=== PATIENT | female | born 2005 | race Hispanic/Latino ===

== ENCOUNTER 2024-07-22 08:02 | Observation (INO) | payer OTHER, SELFPAY ==
[2024-07-22] VITALS (18 sets, daily range): BP systolic 98–141; BP diastolic 52–99; PULSE 56–83; RESP 12–19; TEMP 36.2–36.8; O2SAT 97–99; BMI 24.1
--- NOTE | 2024-07-22 | PATH_ITS ---
[facility] Accession Number: [id number] No. of containers..01 Tissue . 01 Material submitted: . gallbladder - GALLBLADDER . 01 Diagnosis: GALLBLADDER: 1. Acute and chronic cholecystitis with cholelithiasis. No dysplasia or malignancy identified. 2. Benign reactive lymph node. [facility] 07/26/20241712 Local . 01 Electronically signed: . Anup Garcia MD, Pathologist NPI- [id number] . 01 Gross description: . Received in formalin with two identifiers and gallbladder, is an intact gallbladder 10.7 x 3.5 x 3.5 cm with a gibson, slightly roughened external surface. The cystic duct margin is inked blue and a pericystic lymph node candidate is identified 1.0 cm in greatest dimension. The lumen contains a yellow bosselated calculus 2.0 cm in greatest dimension not grossly obstructing the cystic duct and admixed with dark green mucoid and partially solidified bile. The mucosa is green to brown and velvety with yellow areas of discoloration. No polyps or lesions are identified. The kaye average 0.4 cm thick. Client Solutions Manager sections to include the cystic duct margin, one-half of the bisected lymph node candidate, and full thickness sections are submitted in cassette A1. ([id number]) /DIANA 07/26/20241711 Local . 01 Pathologist provided ICD-10: K80.12, K81.2 . 01 CPT . 977020 Specimen Comment: A courtesy copy of this report has been sent to [facility] Performed at: [address] [facility], [place], [place] [id number] MD Anup Garcia MD Phone: [phone]
--- NOTE | 2024-07-22 08:44 | DI.US.S_ITS ---
PROCEDURE: US ABDOMEN LIMITED INDICATIONS: RUQ PAIN TECHNIQUE: Real-time scanning was performed of the abdominal and retroperitoneal organs, with image documentation. COMPARISON: None. FINDINGS: Liver: Liver is normal in size and homogeneous in echotexture. Gallbladder: The gallbladder contains a small amount of dependent sludge and a 1.8 cm stone appears fixed within the gallbladder neck. The gallbladder wall is abnormally thickened at 8.2 mm. There is a small amount of pericholecystic free fluid and focal tenderness during sonographic palpation of the gallbladder. Biliary ducts: Intrahepatic bile ducts are non-dilated. Extrahepatic bile duct caliber measures 5.9 mm. Normal is 6-7 mm or less in diameter, or 10 mm or less post-cholecystectomy. Pancreas: Visualized portions of the pancreas are sonographically normal. Miscellaneous: No free abdominal fluid. IMPRESSION: Acute cholecystitis, associated with a 1.8 cm stone lodged within the gallbladder neck with associated pain, adjacent free fluid, and gallbladder wall thickening. Dictated by: Shimon Garrett M.D. on 07/22/2024 at 9:21 Approved by: Shimon Garrett M.D. on 07/22/2024 at 9:23
--- NOTE | 2024-07-22 08:47 | ED.ABDPAIN ---
HPI - Abdominal Pain General Chief Complaint: Abdominal Pain Stated Complaint: Stomach pain Time Seen by Provider: 07/22/24 08:35 Source: patient Mode of arrival: Family Vehicle History of Present Illness HPI narrative: This is a 19-year-old female who arrives by private vehicle complaining of right upper quadrant abdominal pain. This is day 3 of her right upper quadrant abdominal pain. He is accompanied by nausea and she believes last night she had a fever chills and sweats. She has a prior surgical history of appendectomy is otherwise healthy. She was seen [facility] days ago [facility] for these same symptoms, records of this visit were obtained, physician note with incomplete in the faxed history, she had a normal white count, normal bilirubin and alkaline phosphatase, lipase was normal urine test was negative, ultrasound impression was ?distended gallbladder filled with sludge and borderline wall thickening. No other findings to suggest acute cholecystitis.? Related Data Allergies Allergy/AdvReac Type Severity Reaction Status Date / Time No Known Drug Allergies Allergy Verified 07/22/24 08:55 Patient History Social History Smoking Status: Never smoker Smoking Status: Never smoker Exam Initial Vital Signs Initial Vital Signs: Vital Signs Pulse Rate 83 07/22/24 08:12 Pulse Oximetry 98 07/22/24 08:12 Const General: cooperative and No acute distress HENMT Head: normocephalic and atraumatic Neck Neck: normal visual inspection Chest Chest: normal inspection of the chest Resp Effort & Inspection: normal respiratory effort Auscultation: clear to auscultation bilaterally Cardio Rate: regular rate Rhythm: regular rhythm Heart Sounds: no murmurs GI Auscultation: normal bowel sounds and other (Right upper quadrant is tender with guarding) Neuro General: patient alert and patient oriented x3 Course Orders Ordered: ED Orders 07/22/24 08:20 CBC Auto Diff [Complete Blood Count AUTO DIFF] Stat CMP [Comprehensive Metabolic Panel] Stat Lipase Stat 07/22/24 08:44 US abdomen limited Stat 07/22/24 09:31 MR abdomen wo con Stat 07/22/24 09:32 Consult to General Surgery Stat 07/22/24 10:27 Urine Microscopic Stat Discontinued Medications Hydromorphone HCl (Hydromorphone 0.5 Mg Inj) 0.5 mg IV NOW ONE Stop: 07/22/24 08:45 Last Admin: 07/22/24 09:18 Dose: 0.5 mg Documented By: LAUREN Ondansetron HCl (Ondansetron 4 Mg/2 Ml Inj) 4 mg IV NOW ONE Stop: 07/22/24 08:45 Last Admin: 07/22/24 09:18 Dose: 4 mg Documented By: LAUREN Consultations Consultation #1: Case discussed with and patient was seen by General surgery, Dr. Page. We would like MRCP given the elevated bilirubin but anticipates cholecystectomy later this afternoon Vital Signs Vital signs: Vital Signs - 8 hr 07/22/24 08:12 07/22/24 08:16 07/22/24 08:30 Temperature 98.3 F Pulse Rate 83 78 79 Respiratory Rate 18 Blood Pressure 121/75 Pulse Oximetry 98 98 98 Oxygen Delivery Method Room Air 07/22/24 08:34 07/22/24 08:34 07/22/24 09:00 Temperature Pulse Rate 76 69 Respiratory Rate 16 Blood Pressure 111/75 Pulse Oximetry 98 98 Oxygen Delivery Method Room Air 07/22/24 09:00 07/22/24 09:30 07/22/24 09:30 Temperature Pulse Rate 75 Respiratory Rate Blood Pressure 107/74 108/77 Pulse Oximetry 98 Oxygen Delivery Method 07/22/24 10:00 07/22/24 10:00 07/22/24 11:41 Temperature Pulse Rate 72 Respiratory Rate 18 Blood Pressure 100/58 L 99/66 Pulse Oximetry 98 Oxygen Delivery Method Room Air 07/22/24 11:41 07/22/24 11:42 07/22/24 12:00 Temperature Pulse Rate 72 70 70 Respiratory Rate 14 Blood Pressure 99/66 Pulse Oximetry 99 99 98 Oxygen Delivery Method Room Air MDM - Abdominal Pain Lab Data Lab results narrative: Patient is not , has an elevated bilirubin and AST ALT mild leukocytosis 07/22/24 08:20 07/22/24 08:20 Labs: Lab Results 07/22/24 07/22/24 Range/Units 08:20 10:27 WBC 12.3 H (4.5-11.0) X10^3/uL RBC 5.08 (4.0-5.2) X10^6/uL Hgb 13.6 (12.0-16.0) g/dL Hct 40.7 (36-46) % MCV 80.2 (80-100) fL MCH 26.8 (26-34) PG MCHC 33.5 (30-36) % RDW 14.4 (11.6-14.8) % Plt Count 244 (150-400) X10^3/uL Neut % (Auto) 77.5 H (50-75) % Lymph % (Auto) 12.4 L (25-40) % [place] % (Auto) 7.6 (3-14) % Eos % (Auto) 2.2 (2-4) % Baso % (Auto) 0.3 (0-2) % Neut # (Auto) 9500 H (5913-9315) /uL Lymph # (Auto) 1500 (8828-0175) /uL [place] # (Auto) 900 (0-900) /uL Eos # (Auto) 300 (0-450) /uL Baso # (Auto) 0 (0-100) /uL Sodium 135 L (137-145) mmol/L Potassium 3.8 (3.4-5.1) mmol/L Chloride 100 (98-107) mmol/L Carbon Dioxide 23 (22-32) mmol/L BUN 7 (7-17) mg/dL Creatinine 0.47 L (0.52-1.04) mg/dL Estimated GFR > 60 (>60) mL/min BUN/Creatinine Ratio 14.9 (6-22) Glucose 109 H (70-100) mg/dL Calcium 8.9 (8.4-10.2) mg/dL Total Bilirubin 1.4 H (0.2-1.3) mg/dL AST 134 H (14-36) IU/L ALT 147 H (<35) IU/L Alkaline Phosphatase 85 (38-126) U/L Total Protein 8.1 (6.3-8.2) g/dL Albumin 4.6 (3.5-5.0) g/dL Globulin 3.5 (1.7-4.1) g/dL Albumin/Globulin Ratio 1.3 (1.0-2.8) Lipase 36 (23-300) U/L Urine RBC 0-1/hpf (0-5/HPF) Urine WBC 0-1/hpf (0-5/HPF) Ur Squamous Epith Cells 1-5 /hpf (0-5/HPF) Urine Bacteria Occasional (0-1) (None) Ur Culture Indicated? Cult not indicated Vol Urine Centrifuged 10ml (spun) Point of care testing: Point of Care Testing Test Results Negative Urine Dip Bedside Urine Glucose Negative Bedside Urine Bilirubin - Negative Bedside Urine Ketone ++ 40 Urine Specific [place] 1.010 Bedside Urine Occult Blood ++ Bedside Urine pH 6.0 Bedside Urine Protein - Negative Bedside Urine Urobilinogen - Negative Bedside Urine Nitrite - Negative Bedside Urine Leukocytes - Negative Esterase Imaging Data US - abdomen: Radiologist's Impression: Acute cholecystitis with impacted gallstone MRCP: Radiologist's Impression: Acute cholecystitis with impacted gallstone, no pancreatitis no choledocholithiasis MDM Narrative Medical decision making narrative: 19-year-old female presenting with right upper quadrant pain and tenderness. She appears nontoxic has a mild leukocytosis and ultrasound showing acute cholecystitis. Lipase is normal, MRCP does not show common bile duct stone or pancreatitis. General surgery was consulted in the inner planning cholecystectomy Discharge Plan Departure Patient Disposition: Admitted to Surgery Clinical Impression: Acute calculous cholecystitis Admit Date/Time: 07/22/24 13:37 Admit Provider: Chris Page
[2024-07-22 08:53] LABS: Add Manual Diff / Slide Review NO; Basophils Absolute Auto 0 /uL (0-100); Basophils Percent Auto 0.3 % (0-2); Eosinophils Absolute Auto 300 /uL (0-450); Eosinophils Percent Auto 2.2 % (2-4); Hematocrit 40.7 % (36-46); Hemoglobin 13.6 g/dL (12.0-16.0); Lymphocytes Absolute Auto 1500 /uL (1100-4500); Lymphocytes Percent Auto 12.4 % (25-40); Mean Corpuscular HGB Conc 33.5 % (30-36); Mean Corpuscular Hemoglobin 26.8 PG (26-34); Mean Corpuscular Volume 80.2 fL (80-100); Monocytes Absolute Auto 900 /uL (0-900); Monocytes Percent Auto 7.6 % (3-14); Neutrophils Absolute Auto 9500 /uL (1500-7000); Neutrophils Percent Auto 77.5 % (50-75); Platelet Count 244 X10^3/uL (150-400); Red Blood Cell Count 5.08 X10^6/uL (4.0-5.2); Red Cell Distribution Width 14.4 % (11.6-14.8); White Blood Cell Count 12.3 X10^3/uL (4.5-11.0)
[2024-07-22 09:04] LABS: Alanine Aminotransferase 147 IU/L (<35); Albumin 4.6 g/dL (3.5-5.0); Albumin Globulin Ratio 1.3 (1.0-2.8); Alkaline Phosphatase 85 U/L (38-126); Aspartate Aminotransferase 134 IU/L (14-36); BUN Creatinine Ratio 14.9 (6-22); Bilirubin Total 1.4 mg/dL (0.2-1.3); Blood Urea Nitrogen 7 mg/dL (7-17); Calcium 8.9 mg/dL (8.4-10.2); Carbon Dioxide 23 mmol/L (22-32); Chloride 100 mmol/L (98-107); Estimated Glomerular Filt Rate > 60 mL/min (>60); Globulin 3.5 g/dL (1.7-4.1); Glucose 109 mg/dL (70-100); HEMOLYSIS < 15 (0-50); Lipase 36 U/L (23-300); Potassium 3.8 mmol/L (3.4-5.1); Sodium 135 mmol/L (137-145); Total Protein 8.1 g/dL (6.3-8.2)
[2024-07-22] MEDS: ONDANSETRON 4 MG/2 ML INJ IV ×2 (09:18→15:48)
[2024-07-22] MEDS: HYDROMORPHONE 0.5 MG INJ IV (09:18)
--- NOTE | 2024-07-22 09:31 | DI.MRI.S_ITS ---
PROCEDURE: MR ABDOMEN WO CON INDICATIONS: cholecystitis and elevated bili, choledocholitiasis suspecte TECHNIQUE: Coronal HASTE through the abdomen, axial 2-D FLASH in- and [id number], and breath-hold T2 FSE with fat saturation through the biliary system and pancreas. Oblique coronal and axial thin-slice HASTE, radial thick-slab HASTE centered on the extrahepatic bile ducts. Intravenous secretin: Not requested. COMPARISON: [facility], , ABDOMEN LIMITED, 07/22/2024, 8:54. FINDINGS: Image quality: Diagnostic. Gallbladder: Obstructing stone in the pancreatic neck measuring 1.5 centimeter. There is gallbladder hydrops, focal gallbladder wall thickening and pericholecystic edema. Biliary ducts: No biliary dilation. Pancreas: No ductal dilation. OTHER: Lung bases: Unremarkable. Liver: No solid mass. Spleen: Size is within normal limits. Adrenal Glands: No adrenal nodules. Kidneys and Ureters: No hydronephrosis. No solid mass. No complex renal cystic lesion which requires follow up. Stomach and Bowel: Normal colonic caliber, without significant wall thickening. Peritoneum: No abnormal intraperitoneal fluid. No free air. Ventral Wall: No hernia. Abdominal Nodes: No retroperitoneal or mesenteric adenopathy by size criteria. Vessels: Aorta and inferior vena cava are normal in size. Bones: No aggressive osseous abnormality. IMPRESSION: Acute cholecystitis caused by an obstructing stone at the gallbladder neck measuring 1.5 centimeter. No choledocholithiasis or imaging features acute pancreatitis. Dictated by: John Ramos M.D. on 07/22/2024 at 13:10 Approved by: John aRmos M.D. on 07/22/2024 at 13:12
--- NOTE | 2024-07-22 10:53 | PM.HP.IH.1 ---
History of Present Illness History of Present Illness Date Patient Seen: 07/22/24 Time Patient Seen: 10:00 Date of Onset of Symptoms: 07/21/24 Chief complaint: Stomach pain Narrative: RUQ pain constant, not radiating to back. has had similar sx every few months. mother with GB disease. denies dark urine or acolic stools. fecers last night. last meal last night water at 0930 today. PFSH Social History Smoking Status: Never smoker Comment: hx lap appy Meds Home Medications and Allergies Allergies Allergy/AdvReac Type Severity Reaction Status Date / Time No Known Drug Allergies Allergy Verified 07/22/24 08:55 Review of Systems Review of Systems ROS: Yes All systems reviewed with the patient and are negative except as otherwise documented Exam Vital Signs (past 8 hours): - 07/22/24 08:12 07/22/24 08:16 07/22/24 08:30 Temperature 98.3 F Pulse Rate 83 78 79 Respiratory Rate 18 Blood Pressure 121/75 Pulse Oximetry 98 98 98 Oxygen Delivery Method Room Air 07/22/24 08:34 07/22/24 08:34 07/22/24 09:00 Temperature Pulse Rate 76 69 Respiratory Rate 16 Blood Pressure 111/75 Pulse Oximetry 98 98 Oxygen Delivery Method Room Air 07/22/24 09:00 07/22/24 09:30 07/22/24 09:30 Temperature Pulse Rate 75 Respiratory Rate Blood Pressure 107/74 108/77 Pulse Oximetry 98 Oxygen Delivery Method Oxygen Delivery Method Room Air Narrative Exam Narrative: NAD. AAOX3. RRR, CTAB. Abdomen benign, some RUQ TTP. Const General: cooperative Orientation: alert, awake and oriented x3 Objective Imaging US - abdomen: My impression: acute kervin, normal duct Radiologist's impression: v Labs 07/22/24 08:20 07/22/24 08:20 Labs: Laboratory Results - last 24 hr 07/22/24 08:20 WBC 12.3 H RBC 5.08 Hgb 13.6 Hct 40.7 MCV 80.2 MCH 26.8 MCHC 33.5 RDW 14.4 Plt Count 244 Neut % (Auto) 77.5 H Lymph % (Auto) 12.4 L [place] % (Auto) 7.6 Eos % (Auto) 2.2 Baso % (Auto) 0.3 Neut # (Auto) 9500 H Lymph # (Auto) 1500 [place] # (Auto) 900 Eos # (Auto) 300 Baso # (Auto) 0 Sodium 135 L Potassium 3.8 Chloride 100 Carbon Dioxide 23 BUN 7 Creatinine 0.47 L Estimated GFR > 60 BUN/Creatinine Ratio 14.9 Glucose 109 H Calcium 8.9 Total Bilirubin 1.4 H AST 134 H ALT 147 H Alkaline Phosphatase 85 Total Protein 8.1 Albumin 4.6 Globulin 3.5 Albumin/Globulin Ratio 1.3 Lipase 36 Assessment & Plan Assessment & Plan narrative: acute kervin with elevated LFT. Will clear duct with MRI and likely proceed with lap kervin. Pt counselled R/B lap kervin, alternative (no surgery), need to go open for safety. She understands we have limited ability for ductal clearance locally so will be getting MRI. posted for today. -MRI -NPO -booked -abx -discussed with ED physician Time-Based Coding :: [TOTAL MINUTES] spent with patient and on the chart (including review of chart, obtaining history, exam, reviewing outside data, placing orders, documenting exam and treatment plan, and counseling patient) on [DATE]. PROFEE Production Support Analyst Document charge(s): Yes
[2024-07-22 11:32] LABS: Bacteria Urine Occasional (0-1); RBC Urine 0-1/HPF (0-5/HPF); Squamous Epithelial Cell Urine 1-5 /HPF (0-5/HPF); Urine Volume 10mL (spun); WBC Urine 0-1/HPF (0-5/HPF)
[2024-07-22 11:33] LABS: Culture Indicated Urine Cult Not Indicated
--- NOTE | 2024-07-22 13:34 | PM.EVENT ---
Event Note Date Patient Seen: 07/22/24 Time Patient Seen: 13:34 Event Note (Rapid Response, Code, or fall): MRI clear, will proceed with lap kervin. IMPRESSION: Acute cholecystitis caused by an obstructing stone at the gallbladder neck measuring 1.5 centimeter. No choledocholithiasis or imaging features acute pancreatitis. Dictated by: John Ramos M.D. on 07/22/2024 at 13:10 Approved by: John Ramos M.D. on 07/22/2024 at 13:12
[2024-07-22] MEDS: LACTATED RINGERS 1,000 ML 42 ML IV (14:00)
--- NOTE | 2024-07-22 14:18 | SUR.OPER ---
Supine on padded OR bed, head on pillow, safety belt at thigh, left arm padded and tucked at side. Right arm secured on padded arm board <90 degrees abduction. Legs uncrossed. Padded footboard in place. Tape over blanket to secure lower legs.
--- NOTE | 2024-07-22 15:34 | PM.OP.1 ---
Operative Date/Time/Diagnoses Date of procedure: 07/22/24 Time of procedure: 15:35 Pre-op diagnosis: Acute cholecystitis Post-op diagnosis: same Procedure & Clinicians Procedure: Laparoscopic cholecystectomy, bilateral tap blocks Same procedure as scheduled: Yes Indications: Acute cholecystitis Surgeon: Chris Page Anesthesia Type: General Operative Notes Findings: Acute cholecystitis Closure Type: primary Estimated Blood Loss (mL): 50 Blood products transfused: none Procedure in detail: After consent was obtained and questions were answered about the case, patient was brought back to the operating room placed supine on the operating table. General anesthesia was induced without difficulty. The abdomen was prepped and draped in standard sterile fashion. Surgical time-out was performed verifying correct patient position. An infraumbilical incision was made, dissected sharply down to the level of the umbilical stalk, which was then divided and the abdomen was entered. on cannula was placed, the abdomen was insufflated, and the patient tolerated this well. A laparoscope was placed and no injury was identified from abdominal entry, there were some adhesive bands between the liver and the abdominal wall that were flimsy, the gallbladder was inflamed and tense. Local anesthesia was infiltrated at the epigastric, and the right upper quadrant x2 port sites. Each was incised with a 5 mm incision and 5 mm ports were placed under direct vision. The patient was placed head up and [id number]. The dome of the gallbladder was grasped through the right costal margin ports and retracted over the liver. Using a combination of electrocautery, blunt dissection, and blunt dissection with the suction technical solution architect, the infundibulum of the gallbladder was retracted laterally and the triangle of [place] was dissected. Significant portion of the gallbladder up along the cystic plate was dissected, achieving the critical view of safety with a single cystic duct and a single artery going into the gallbladder. These were both doubly clipped proximally distally and divided. The gallbladder was then removed from the hepatic plate and taken off the liver with a combination of cautery dissection and blunt dissection. There were some areas of bleeding that were treated with cautery, a portion of the gallbladder was intrahepatic and some cautery of the liver was performed. There was a small bleeding vessel midway up the liver that was clipped. The gallbladder was then placed in a laparoscopic retrieval bag and brought out through the umbilical port without difficulty. Reinspection of the abdomen with significant irrigation was performed, the entire operative field was hemostatic. Under direct vision, bilateral tap blocks with Exparel were placed. Laparoscopic ports were all removed under direct vision, the umbilical port was removed and the abdomen was allowed to desufflate. The umbilical incision was closed with an 0 Vicryl on a UR 6 suture, all incisions were closed with Monocryl and Dermabond dressings. The patient was brought out of anesthesia and taken to the PACU in stable condition. I spoke to the patient's needle loom operator and reported the findings. Complications: none Post-operative Condition: stable Plan for aftercare: admit to floor
[2024-07-22] MEDS: hydrOXYzine 50 MG/ML INJ 25 MG IM (15:48)
--- NOTE | 2024-07-22 17:49 | PC.NURSE ---
Patient eating and tolerating food well. She is also drinking water and fluids. She has 4 lapsites that are all durmobonded and no drainage noted. Her skin is clear upon assessment with other nurse. Patient has visitors now, she denies nausea or pain.
[2024-07-23] VITALS: BP 100/60; PULSE 78; RESP 18; TEMP 37; O2SAT 100
[2024-07-23 04:00] VITALS: BP 130/66; PULSE 74; RESP 19; TEMP 37.1; O2SAT 96
[2024-07-23 08:00] VITALS: BP 101/56; PULSE 61; RESP 16; TEMP 37; O2SAT 99
[2024-07-23 12:00] VITALS: BP 121/64; PULSE 62; RESP 16; TEMP 36.7; O2SAT 98
--- NOTE | 2024-07-23 12:33 | PC.NURSE ---
Patient given tylenol for discomfort of 3, her 4 lapsites are all open to air and durmobonded. Up adlib. Awaiting for surgeon to come and see patient to see if she will discharge back to [facility].
--- NOTE | 2024-07-23 12:58 | P.DS_ITS ---
History of Present Illness History of Present Illness Date Patient Seen: 07/23/24 Time Patient Seen: 12:59 Chief complaint: Stomach pain Narrative: RUQ pain constant, not radiating to back. has had similar sx every few months. mother with GB disease. denies dark urine or acolic stools. fecers last night. last meal last night water at 0930 today. Discharge Providers Provider Date of admission: 07/22/24 13:37 Discharge Date: 07/23/24 Primary care physician: Oanh SIMEON Provider Consults: 07/22/24 09:32 Consult to General Surgery Stat Comment: Consulting Provider: [facility] Reason for consultation: cholecystitis Discharge provider: Chris Page MD Summary Hospital Course Discharge Diagnosis: acute cholecystitis Hospital Course: patient went for lap kervin. Procedure went well and she recovered post op. pain was controlled with oral pain meds. ambulatory. tolerating regular diet. afebrile with normal vital signs. Status at Discharge Cognitive/behavioral status at discharge: oriented Functional status at discharge: independent ambulation Overall status at discharge: patient is back to baseline Time Spent with Patient Time spent: Greater than 30 minutes Exam Vital Signs (past 8 hours): - 07/23/24 08:00 07/23/24 12:00 Temperature 98.6 F 98.0 F Pulse Rate 61 62 Respiratory Rate 16 16 Blood Pressure 101/56 L 121/64 Pulse Oximetry 99 98 Oxygen Flow Rate 0 0 Oxygen Delivery Method Room Air Oxygen Flow Rate 0 Const General: cooperative and healthy appearing HENMT Head: normal to inspection Eyes General: appearance normal, both eyes and all related structures Chest Chest: normal inspection of the chest Resp Effort & Inspection: normal respiratory effort GI Inspection: normal to inspection Palpation: soft Other: incisions clean dry and intact Objective Labs 07/22/24 08:20 07/22/24 08:20 PFSH Social History household members: friend(s) Smoking Status: Never smoker Discharge Assessment & Plan Assessment and Plan Assessment: acute cholecystitis, s/p lap kervin Plan of Treatment: d/c home Discharge Plan Discharge Plan Patient Disposition: Home Provider Discharge Comment: Care of her [place] Glad[place] Discharge orders & Medications Prescriptions: New acetaminophen 325 mg Tablet 650 mg PO Q6H 10 Days Qty: 80 0RF hydrocodone-acetaminophen 5-325 mg Tablet 1 tab PO Q4H PRN (Reason: Pain, Moderate (4-6)) Qty: 20 0RF docusate sodium 100 mg Capsule 100 mg PO BID Qty: 20 0RF Medication counseling provided by Pharmacist: No Follow up/Referrals: Chris Page MD [Physician] - (Call [facility] as needed ) ProviderOanh [Primary Care Provider] - Discharge Health Status Multidrug resistant organism: No MDRO Diet/Activity/Treatments Diet: Diet as Tolerated and Regular Activity: as tolerated. Convalescent leave recommend for 10 days, and 6 total weeks of light duty. 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 ok for light cardio work after 10 days no heavy lifting. Skin/Wound/Dressing Care Skin care: ok to shower. dont soak incisions for 4-6 weeks (no swimming, no bathtub) Report to your healthcare provider any signs of infection, such as:: chills, fever, night sweats, increased pain, unusual drainage and unusual redness Dressing: surgical glue dressings Visit Report/Discharge Packet Instructions: DI for Prescription Opioid Use, DI for Laparoscopic Cholecystectomy, [facility]: Wound Care Stand Alone Forms: Patient Portal/API, Stroke Signs & Symptoms, Surgery Discharge Discharge Data Primary Care Provider: Oanh Leal Attending Provider: Chris Page Admit Date/Time: 07/22/24 13:37 Quality VTE Deep Vein Thrombosis/Pulmonary Embolism Present on Admission: No IH PROFEE Charge Codes Discharge inpatient/observation: 11679
== END 2024-07-23 14:36 | disposition home or self-care (01) ==
LOC: ED 10:21 → AC 13:37
PROVIDERS: Emergency Provider Emergency Medicine; Referring Provider Emergency Medicine
DX: K81.0 Acute cholecystitis (principal); K66.0 Peritoneal adhesions (postprocedural) (postinfection)
CPT/HCPCS: 47562; 36415; 74181; 76705; 80053; 81003; 81015; 81025; 83690; 85025; 96372; 96374; 96375; 99222; 99284; G0378; J0330; J0666; J0690; J1100; J1171; J1644; J1885; J2250; J2405; J2704; J3010; J3410; J3490